=== PATIENT | male | born 1985 | race Caucasian/White ===

== ENCOUNTER 2016-05-25 14:46 | Emergency (ER) | payer SELFPAY ==
[2016-05-25] MEDS ORDERED: FENTANYL CITRATE INJ/PF 100 MCG/2 ML AMPUL ONE (14:57)
[2016-05-25] MEDS ORDERED: RINGERS SOLUTION,LACTATED 1,000 ML IV ONE (15:01)
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
[2016-05-25] MEDS ORDERED: HYDROMORPHONE HCL INJ/PF 2 MG/ML AMPULE IV ONE (16:28)
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
== END 2016-05-25 18:30 | disposition short-term general hospital (02) ==
LOC: ER 14:46
DX: T30.4 Corrosion of unspecified body region, unspecified degree (principal)
CPT/HCPCS: 99291; 96361; 96374; 96375; J3010; J1170; J7120

== ENCOUNTER 2016-11-06 14:04 | Emergency (ER) | payer SELFPAY ==
--- NOTE | 2016-11-06 14:11 | ER Document Report ---
ED Substance Abuse / Acc. OD - General Stated Complaint: POSSIBLE OVERDOSE Time Seen by Provider: 11/06/16 14:08 Mode of Arrival: Stretcher Information source: Patient, Emergency Med Personnel TRAVEL OUTSIDE OF THE [place] IN LAST 30 DAYS: No - HPI Patient complains to provider of: Accidental overdose Onset: Just prior to arrival Onset/Duration: Sudden Quality of pain: Achy Severity: Mild Pain Level: 1 Similar symptoms previously: No Recently seen / treated by doctor: No Notes: Patient is a 31-year-old male brought to the emergency room by EMS for overdose , patient admits to using heroin this morning, approximately one bag, he injects IV, states he uses it about once a week or so, denies any other drugs or substances in his system, denies suicidal ideation, apparently his brother heard a thump as patient had passed out and become unresponsive, EMS administered Narcan upon arrival patient has been awake and alert since, patient denies a history of similar symptoms previously - Related Data Allergies/Adverse Reactions: diphenhydramine HCl [From Benadryl] Allergy (Verified 04/29/15 22:18) Home Medications: Current Home Medications No Home Medications 11/06/16 [History] Past Medical History - General Information source: Patient - Social History Smoking Status: Unknown if Ever Smoked Family History: Reviewed & Not Pertinent Review of Systems - Review of Systems Constitutional: No symptoms reported EENT: No symptoms reported Cardiovascular: No symptoms reported Respiratory: No symptoms reported Gastrointestinal: No symptoms reported Genitourinary: No symptoms reported Male Genitourinary: No symptoms reported Musculoskeletal: No symptoms reported Skin: No symptoms reported Hematologic/Lymphatic: No symptoms reported Neurological/Psychological: See HPI -: Yes All other systems reviewed and negative Physical Exam - Vital signs Vitals: Temp Resp Pulse Ox 98.0 F 12 100 11/06/16 14:09 11/06/16 14:09 11/06/16 14:09 Interpretation: Normal - General General appearance: Appears well, Alert - HEENT Head: Normocephalic, Atraumatic Eyes: Normal Conjunctiva: Normal Extraocular movements intact: Yes Eyelashes: Normal Pupils: PERRL Neck: Other - Tenderness to palpation in the right paraspinal musculature, no midline tenderness, no step-off deformity - Respiratory Respiratory status: No respiratory distress Chest status: Nontender Breath sounds: Normal Chest palpation: Normal - Cardiovascular Rhythm: Regular Heart sounds: Normal auscultation Murmur: No - Abdominal Inspection: Normal Distension: No distension Bowel sounds: Normal Tenderness: Nontender Organomegaly: No organomegaly - Back Back: Normal, Nontender - Extremities General upper extremity: Normal inspection, Nontender, Normal color, Normal ROM , Normal temperature General lower extremity: Normal inspection, Nontender, Normal color, Normal ROM , Normal temperature, Normal weight bearing. No: Ranjith's sign - Neurological Neuro grossly intact: Yes Cognition: Normal Orientation: AAOx4 Chuck Coma Scale Eye Opening: Spontaneous [place] Coma Scale Verbal: Oriented Chuck Coma Scale Motor: Obeys Commands Chuck Coma Scale Total: 15 Speech: Normal Motor strength normal: LUE, RUE, LLE, RLE Sensory: Normal - Psychological Associated symptoms: Normal affect, Normal mood - Skin Skin Temperature: Warm Skin Moisture: Dry Skin Color: Normal Course - Re-evaluation Re-evalutation: 11/06/16 17:29 Patient is resting comfortably on stretcher, vital signs have remained stable except for mild hypotension, likely a result of heroin in his system, this responded quite well to 1 L of IV fluids, patient was discharged with instructions for follow-up, advised to discontinue use of illicit drugs, he did state that this was a wakeup call for him as this has never happened before and he plans on getting help to stop using drugs, he was provided with a list of resources and advised to return if any additional concerns, patient acknowledges understanding and agreement with this plan - Vital Signs Vital signs: Temp Pulse Resp BP Pulse Ox 98.0 F 11 L 100/68 99 11/06/16 17:00 11/06/16 16:59 11/06/16 17:00 11/06/16 16:59 - Laboratory Result Diagrams: 11/06/16 14:08 11/06/16 14:08 Laboratory results interpreted by me: 11/06/16 14:08 Salicylates < 1.0 L Acetaminophen < 10 L - EKG Interpretation by Ia EKG shows normal: Sinus rhythm Rate: Normal Rhythm: NSR Discharge - Discharge Clinical Impression: Accidental heroin overdose Qualifiers: Encounter type: initial encounter Qualified Code(s): T40.1X1A - Poisoning by heroin, accidental (unintentional), initial encounter Condition: Stable Disposition: HOME, SELF-CARE Instructions: Instructions for Home Care Following a Drug Overdose ([facility]), Overdose ([facility]) Additional Instructions: Follow up with your primary care provider in one to 2 days. Return to the emergency room immediately if symptoms worsen or any additional concerns.
[2016-11-06 14:21] LABS: ABSOLUTE BASOPHILS # (AUTO) 0.1 10^3/uL (0.0-0.2); ABSOLUTE EOSINOPHILS # (AUTO) 0.2 10^3/uL (0.0-0.6); ABSOLUTE LYMPHOCYTES (AUTO) 2.6 10^3/uL (0.5-4.7); ABSOLUTE MONOCYTES (AUTO) 0.5 10^3/uL (0.1-1.4); EOSINOPHILS % (AUTO) 2.2 % (0-6); HEMATOCRIT 41.2 % (37.9-51.0); HEMOGLOBIN 13.9 g/dL (13.5-17.0); HGB HCT DIFFERENCE 0.5; LYMPHOCYTES % (AUTO) 30.6 % (13-45); MEAN CORPUSCULAR HEMOGLOBIN 30.4 pg (27.0-33.4); MEAN CORPUSCULAR HGB CONC 33.6 g/dL (32.0-36.0); MEAN CORPUSCULAR VOLUME 90 fl (80-97); MONOCYTES % (AUTO) 6.4 % (3-13); RED BLOOD COUNT 4.57 10^6/uL (4.35-5.55); RED CELL DISTRIBUTION WIDTH 13.5 % (11.5-14.0); SEGMENTED NEUTROPHILS % (AUTO) 59.8 % (42-78); WHITE BLOOD COUNT 8.4 10^3/uL (4.0-10.5)
[2016-11-06 14:40] LABS: ALANINE AMINOTRANSFERASE 34 U/L (21-72); ALBUMIN 4.3 g/dL (3.5-5.0); ALCOHOL < 10 mg/dL (NONE DETECTED); ALKALINE PHOSPHATASE 69 U/L (38-126); ANION GAP 13 (5-19); ASPARTATE AMINO TRANSFERASE 29 U/L (17-59); BILIRUBIN,DIRECT 0.3 mg/dL (0.0-0.4); BILIRUBIN,TOTAL 0.4 mg/dL (0.2-1.3); BLOOD UREA NITROGEN 18 mg/dL (7-20); CALCIUM 9.2 mg/dL (8.4-10.2); CARBON DIOXIDE 27 mmol/L (22-30); CHLORIDE 103 mmol/L (98-107); CREATININE RESULT 0.92 mg/dL (0.52-1.25); GLUCOSE 104 mg/dL (75-110); POTASSIUM 4.4 mmol/L (3.6-5.0); SODIUM 142.9 mmol/L (137-145); TOTAL PROTEIN 6.9 g/dL (6.3-8.2)
[2016-11-06 14:51] LABS: AMORPHOUS SEDIMENT,URINE TRACE /HPF; APPEARANCE,URINE SLIGHTLY-CLOUDY; BILIRUBIN,URINE NEGATIVE (NEGATIVE); GLUCOSE, URINE NEGATIVE (NEGATIVE); KETONES,URINE NEGATIVE (NEGATIVE); LEUKOCYTE ESTERASE,URINE NEGATIVE (NEGATIVE); NITRITE,URINE NEGATIVE (NEGATIVE); PROTEIN,URINE NEGATIVE (NEGATIVE); URINE SPECIFIC GRAVITY 1.014; UROBILINOGEN,URINE NEGATIVE mg/dL (<2.0)
[2016-11-06 15:13] LABS: URINE BARBITURATES SCREEN NEGATIVE; URINE METHADONE SCREEN NEGATIVE; URINE OPIATES LOW NEGATIVE; URINE PHENCYCLIDINE SCREEN NEGATIVE
[2016-11-06] MEDS ORDERED: NORMAL SALINE 1000 ML 1,000 ML IV PRN (16:03)
[2016-11-06 17:27] VITALS: BP 100/68
--- NOTE | 2016-11-06 20:19 | EKG REPORT ---
SEVERITY:- OTHERWISE NORMAL ECG - SINUS RHYTHM LATERAL Q WAVES, PROBABLY NORMAL VARIATION : Confirmed by: Chuy Kyle MD 06-Nov-2016 20:18:29
== END 2016-11-06 17:27 | disposition home or self-care (01) ==
LOC: ER 14:04
DX: T40.1X1A Poisoning by heroin, accidental (unintentional), initial encounter (principal); I95.9 Hypotension, unspecified
CPT/HCPCS: 93005; 99284; 96360; 36415; 80307 ×4; 85025; 80053; 81001; 93010; J7030

== ENCOUNTER 2018-11-26 20:44 | Emergency (ER) | payer SELFPAY ==
--- NOTE | 2018-11-26 20:59 | ER Document Report ---
ED Medical Screen (RME) - General Chief Complaint: Knee Injury Stated Complaint: RIGHT KNEE INJURY Time Seen by Provider: 11/26/18 20:57 Mode of Arrival: Ambulatory Information source: Patient Notes: Patient states that he was working 4 days ago felt a sudden pop in the knee. Patient has had persistent right knee pain and swelling since then and goes as though that the knee wants to give out. Patient with large joint effusion knee. I have greeted and performed a rapid initial assessment of this patient. A comprehensive ED assessment and evaluation of the patient, analysis of test res ults and completion of the medical decision making process will be conducted by additional ED providers. TRAVEL OUTSIDE OF THE [place] IN LAST 30 DAYS: No - Related Data Allergies/Adverse Reactions: diphenhydramine HCl [From Benadryl] Allergy (Verified 11/26/18 20:55) Physical Exam - Vital signs Vitals: Temp Pulse Resp BP Pulse Ox 98.1 F 115 H 20 123/72 98 11/26/18 20:50 11/26/18 20:50 11/26/18 20:50 11/26/18 20:50 11/26/18 20:50 - General Notes: Effusion to right knee joint Course - Vital Signs Vital signs: Temp Pulse Resp BP Pulse Ox 98.1 F 115 H 20 123/72 98 11/26/18 20:50 11/26/18 20:50 11/26/18 20:50 11/26/18 20:50 11/26/18 20:50
--- NOTE | 2018-11-26 21:25 | RADIOLOGY REPORT (SQ) ---
EXAM DESCRIPTION: XR KNEE 4 OR MORE VIEWS COMPLETED DATE/TME: 11/26/2018 20:58 CLINICAL HISTORY: 33 years, Male, felt pop, + swelling COMPARISON: None. NUMBER OF VIEWS: Four TECHNIQUE: Frontal, lateral, and oblique radiographs were obtained LIMITATIONS: None. FINDINGS: Visualized osseous structures are normal in appearance. Joint spaces are well-maintained. No acute fracture or dislocation is evident. Large knee joint effusion. IMPRESSION: Large knee joint effusion without underlying acute osseous anomaly. copyright 2010 [id number]- All Rights Reserved
[2018-11-27] MEDS ORDERED: INDOMETHACIN 50 MG CAPSULE PO ONE (00:52)
[2018-11-27] MEDS ORDERED: FAMOTIDINE 20 MG TABLET PO ONE (00:52)
--- NOTE | 2018-11-27 00:59 | ER Document Report ---
ED Extremity Problem, Lower - General Chief Complaint: Knee Injury Stated Complaint: RIGHT KNEE INJURY Time Seen by Provider: 11/26/18 20:57 Primary Care Provider: DOROTHY BENTLEY MD [ACTIVE STAFF] - Follow up in 1 week Mode of Arrival: Ambulatory Notes: Patient is a 33-year-old male that comes emergency department for chief complaint of swelling and pain to the right knee. He states he was working on a fence 4 days ago when he stood and felt a sudden pop in the knee. Since that time the knee has been swelling and painful. He states he has been taking ibuprofen and trying to elevate the knee but it is not improving. Patient denies fever/chills, denies any other injuries or any other complaints. Patient does have a history of heroin abuse and is currently taking Subutex, he denies a ny other medications. TRAVEL OUTSIDE OF THE [place] IN LAST 30 DAYS: No - Related Data Allergies/Adverse Reactions: diphenhydramine HCl [From Benadryl] Allergy (Verified 11/26/18 20:55) Past Medical History - General Information source: Patient - Social History Smoking Status: Current Every Day Smoker Frequency of alcohol use: Rare Drug Abuse: Heroin - former user Lives with: Family Family History: Reviewed & Not Pertinent Patient has suicidal ideation: No Patient has homicidal ideation: No Surgical Hx: Negative - Immunizations Immunizations up to date: Yes Hx Diphtheria, Pertussis, Tetanus Vaccination: Yes Review of Systems - Review of Systems Constitutional: No symptoms reported EENT: No symptoms reported Cardiovascular: No symptoms reported Respiratory: No symptoms reported Gastrointestinal: No symptoms reported Genitourinary: No symptoms reported Male Genitourinary: No symptoms reported Musculoskeletal: See HPI Skin: No symptoms reported Hematologic/Lymphatic: No symptoms reported Neurological/Psychological: No symptoms reported Physical Exam - Vital signs Vitals: Temp Pulse Resp BP Pulse Ox 98.1 F 115 H 20 123/72 98 11/26/18 20:50 11/26/18 20:50 11/26/18 20:50 11/26/18 20:50 11/26/18 20:50 - Notes Notes: GENERAL: Alert, interacts well. No acute distress. HEAD: Normocephalic, atraumatic. EYES: Pupils equal, round, and reactive to light. Extraocular movements intact. ENT: Oral mucosa moist, tongue midline. Oropharynx unremarkable. Airway patent. NECK: Full range of motion. Supple. Trachea midline. LUNGS: Clear to auscultation bilaterally, no wheezes, rales, or rhonchi. No respiratory distress. HEART: Regular rate and rhythm. No murmur ABDOMEN: Soft, non-tender. Non-distended. Bowel sounds present in all 4 quadrants. GENITOURINARY: Deferred EXTREMITIES: Right knee is significantly swollen compared to the left. However there is no abnormal erythema or significant warmth to the area, patient still has range of motion, there is only some generalized tenderness over the area as well. Calf and lower leg are normal with normal distal neurovascular exam, normal thigh and hip exam. Normal extremities otherwise. BACK: no cervical, thoracic, lumbar midline tenderness. No saddle anesthesia, normal distal neurovascular exam. Moves all extremities in full range of motion. NEUROLOGICAL: Alert and oriented x3. Normal speech. Cranial nerves II through XII grossly intact. PSYCH: Normal affect, normal mood. SKIN: Warm, dry, normal turgor. No rashes or lesions noted. Course - Re-evaluation Re-evalutation: X-ray showing large effusion. No fracture. Exam does not suggest septic joint because patient still has range of motion, there is no significant tenderness or erythema to the area despite patient's history of IV drug abuse. He is currently on Subutex and not using reportedly. He does not have fever. He also reports a history of an injury. More likely this is internal injury of the knee. Discussed possible arthrocentesis but this was declined because of the risk. He will be placed on a stronger anti-inflammatory because his current home one was not working, discussed use of knee immobilizer, expectations, importance of orthopedic follow-up, and return precautions. Patient states understanding and agreement. Patient asked for help getting insurance for additional management. After discussion I did place a family preservation caseworker consult for him. - Vital Signs Vital signs: Temp Pulse Resp BP Pulse Ox 97.8 F 88 16 105/70 97 11/27/18 01:08 11/27/18 01:08 11/27/18 01:08 11/27/18 01:08 11/27/18 01:08 Procedures - Immobilization right knee Pre-Proc Neuro Vasc Exam: Normal Immobilizer type: Knee immobilizer Performed by: PCT Post-Proc Neuro Vasc Exam: Normal Alignment checked and good: Yes Discharge - Discharge Clinical Impression: Swelling of right knee joint, Effusion, right knee Condition: Stable Disposition: HOME, SELF-CARE Additional Instructions: You have a large joint effusion or fluid inside of the joint of the right knee from the injury. This is concerning, we will try conservative management first including using the knee immobilizer and crutches, ice 3-4 times a day for 10 to 15 minutes, and taking the stronger anti-inflammatory indomethacin as prescribed. Also take the famotidine with this to avoid stomach irritation. If symptoms continue follow-up with the orthopedics referral as directed. We do have a family preservation caseworker consult placed because of your situation. They will be contacting you. Return if you worsen including increased swelling, increased pain, developing redness, developing fever, or any other concerning symptoms. Prescriptions: Indomethacin [Indocin 50 mg Capsule] 50 mg PO TID #15 capsule Famotidine [Pepcid 20 mg Tablet] 20 mg PO BID #20 tablet Referrals: DOROTHY BENTLEY MD [ACTIVE STAFF] - Follow up in 1 week
[2018-11-27 01:13] VITALS: BP 105/70
== END 2018-11-27 01:17 | disposition home or self-care (01) ==
LOC: ER 20:44
DX: M25.461 Effusion, right knee (principal); M79.89 Other specified soft tissue disorders; M25.561 Pain in right knee; X58.XXXA Exposure to other specified factors, initial encounter; F17.200 Nicotine dependence, unspecified, uncomplicated
CPT/HCPCS: 73564; L1830; J3490; 99283